=== PATIENT | female | born 1965 | race Caucasian/White ===

== ENCOUNTER 2025-08-17 23:06 | Inpatient (IN) | payer MEDICAID ==
[~2025-08-17] VITALS: Ht 160 cm; Wt 77.5 kg
--- NOTE | 2025-08-17 23:34 | Physician Documentation ---
History of Present Illness ~ Chief Complaint: See Chief Complaint Stated Complaint: FALL Time Seen by MD: 23:29 Source: patient Mode of Arrival: POV Exam Limitations: no limitations HPI 59-year-old female had a single syncopal episode today. 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 2/10 pain. Patient has history of heart murmur and type 2 diabetes she does take metformin glipizide and insulin. Patient's blood sugar this morning was unremarkable. Patient felt fine prior to her volunteer time. Patient was evaluated at [facility] with multiple CTs including CT angio head and neck, CT lumbar spine chest x-ray, CT cervical spine, CT brain. Due to the poor weather transport was not available patient's spouse falling tear to self transport here due to meeting further evaluation for TIA symptoms. With vertical in the past but [place] syncopal episode a tele neuro consult at [facility] recommended further evaluation for TIA stroke. Patient during re- examination of the hospital stay nightmares had 2 episodes of diplopia as well as a few episodes of vertigo the double vision lasted about 5 minutes and fully resolved in the vertigo only lasted a few minutes prior to resolution Medication Reconciliation Allergies: Coded Allergies: bupropion (Verified Allergy, Unknown, 08/17/25) ipratropium (Verified Allergy, Unknown, 08/17/25) Past Medical History Past Medical History: *CARDIOVASCULAR*, Heart Valve Disease, Diabetes Past Surgical History: noncontributory Lives with: Spouse Lives In: Home Occupation: disabled Review of Systems All Other Systems at this time: Reviewed and Negative Neurological: Reports: see HPI Physical Exam Vital Signs: RN Vital Signs have been reviewed: Yes, Temperature: 97.9, Heart Rate: 65, Respiratory Rate: 16, BP: 169/148, Pulse Oximetry: 100, Weight: 77.500 Oxygen Flow Rate: 0 Physical Exam General: Alert, no apparent distress. HEENT: PERRL, EOMI, no injection, moist mucous membranes. Normocephalic atraumatic Neck: Full range of motion. No cervical spine pain Respiratory: Lungs clear, no respiratory distress. Chest: No accessory muscle use. Cardiovascular: Regular rate and rhythm, 3/6 murmur Extremities: Normal range of motion, no deformity. Neurologic: Oriented x4. No facial asymmetry no speech difficulties no swallowing difficulties no obvious neuro deficits Psychiatric: Normal mood and affect. Skin: Normal color, warm and dry. No edema, no ecchymosis. Progress Results/Orders Results/Orders Orders - CHIOMA GOULD MANAGER BIOSTATISTICS Electrocardiogram (08/17/25 23:34) Accucheck (08/17/25 23:34) Monitor (08/17/25 23:34) Saline Lock (08/17/25 23:34) Page Hospitalist (08/18/25 00:03) Fill Out Med Reconciliation (08/18/25 00:03) Completed Orders - CHIOMA GOULD MANAGER BIOSTATISTICS Cbc/Diff (08/17/25 23:34) Urinalysis, Cult If Indicated (08/17/25 23:34) BMP (08/17/25 23:34) Hs Troponin I W Calculations (08/17/25 23:34) Vital Signs 08/17/25 08/17/25 08/17/25 23:14 23:14 23:39 Temp 97.9 Pulse 65 63 Resp 16 18 16 B/P (MAP) 169/148 123/95 (104) Pulse Ox 100 99 O2 Flow Rate 0 Laboratory Tests Test 08/17/25 23:11 08/17/25 23:27 08/17/25 23:30 Urine Specimen Description Cln catch midstream Urine Color Yellow Urine Clarity Clear Urine pH 6.0 Urine Specific [place] 1.010 Urine Protein Negative Urine Glucose (UA) 500 H Urine Ketones Negative Urine Occult Blood Negative Urine Nitrite Negative Urine Bilirubin Negative Urine Urobilinogen 0.2 Urine Leukocyte Esterase Negative Urine Culture Indicated Not ind Volume Urine Centrifuged 10 ml Urine Comment White Blood Count 9.3 Red Blood Count 5.04 Hemoglobin 15.6 Hematocrit 44.3 Mean Corpuscular Volume 88.0 Mean Corpuscular Hemoglobin 30.9 Mean Corpuscular Hemoglobin Concent 35.1 Red Cell Distribution Width 15.4 H Platelet Count 254 Mean Platelet Volume 8.6 Neutrophils (%) (Auto) 64.0 Lymphocytes (%) (Auto) 28.6 Monocytes (%) (Auto) 5.5 Eosinophils (%) (Auto) 1.3 Basophils (%) (Auto) 0.6 Neutrophils # (Auto) 5.9 Lymphocytes # (Auto) 2.7 Monocytes # (Auto) 0.5 Eosinophils # (Auto) 0.1 Basophils # (Auto) 0.1 CBC Comment Sodium Level 140 Potassium Level 3.8 Chloride Level 107 Carbon Dioxide Level 26.2 Anion Gap 7 L Blood Urea Nitrogen 19 H Creatinine 0.57 Estimated GFR/1.73 m2 > 90 BUN/Creatinine Ratio 33.3 H Glucose Level 94 Calcium Level 8.9 Troponin I High Sensitivity 7 Albumin 3.9 Chemistry Comments Glucometer 107 H Medical Decision Making Additional information obtaine: old records Findings Records briefly reviewed by [facility]. Admit for workup for TIA/stroke due to syncopal episode. Differential Dx:Considerations: Include: dehydration, dysrhythmia, electrolyte disorder, hypoglycemia, vasovagal, vertigo peripheral, other Departure Time of Disposition: 00:00 Disposition: 02 SHORT TERM HOSPITAL Impression: Primary Impression: Syncopal episodes Additional Impressions: Closed head injury Cervical sprain Lumbar strain Diplopia Condition: Fair Referrals: NO PRIMARY CARE PROVIDER (PCP) Education Educated: Patient, Family Educated regarding: diagnosis, treatment, need for follow up Signature Scribe Signature: No scribe Attestation: The note accurately reflects work and decisions made by me.Chioma MEYER 08/17/25 23:33 CHIOMA GOULD NP Aug 17, 2025 23:34
[2025-08-17 23:42] LABS: MEAN PLATELET VOLUME 8.6 FL (7.4-10.4); RED CELL DISTRIBUTION WIDTH 15.4 % (11.5-14.5)
[2025-08-17 23:52] LABS: CREATININE 0.57 MG/DL (0.40-0.90); TOTAL CARBON DIOXIDE 26.2 MMOL/L (24-32); eCRCL 89 ML/MIN; eGFR > 90 ML/MIN
[2025-08-17 23:56] LABS: LEUKOCYTE ESTERASE ,URINE NEGATIVE (Neg); NITRITES, URINE NEGATIVE (Neg); OCCULT BLOOD,URINE NEGATIVE (Neg)
[2025-08-17 23:58] LABS: UA COLLECTION TYPE CLN CATCH MIDSTREAM
[2025-08-18] VITALS (10 sets, daily range): BP systolic 80–143; BP diastolic 40–66; PULSE 56–79; RESP 12–19; TEMP 97.5–98.5; O2SAT 95–100
[2025-08-18] MEDS ORDERED: potassium Cl 40MEQ/1/2NS 520ml 520 ML IV PRN (00:30)
[2025-08-18] MEDS ORDERED: ondansetron/PF 4mg/2ml inj IV PRN (00:30)
[2025-08-18] MEDS ORDERED: magnesium sulf-water 2g/50mL 50 ML IV PRN (00:30)
[2025-08-18] MEDS ORDERED: potassium Cl 20 mEq SR tablet PO PRN ×2 (00:30)
[2025-08-18] MEDS ORDERED: HYDROcodone/acetaminophen 5mg/325mg tablet PO PRN (00:30)
[2025-08-18] MEDS ORDERED: magnesium sulf-water 4G/100mL 100 ML IV PRN (00:30)
[2025-08-18] MEDS ORDERED: mag hydrox/Alum hydrox/simeth 30ml oral suspension PO PRN (00:30)
[2025-08-18] MEDS ORDERED: magnesium hydroxide 30ml (MOM) UD suspension PO PRN (00:30)
[2025-08-18] MEDS ORDERED: magnesium Cl slow-release 64mg tablet PO PRN (00:30)
[2025-08-18] MEDS ORDERED: TIOT18CA3 INH (00:50)
[2025-08-18] MEDS ORDERED: GLIP10TA18 PO (00:50)
[2025-08-18] MEDS ORDERED: LISI10TA27 PO (00:50)
[2025-08-18] MEDS ORDERED: MECL-302 PO (00:50)
[2025-08-18] MEDS ORDERED: SIMV-42 PO (00:50)
[2025-08-18] MEDS ORDERED: METF-438 PO (00:50)
[2025-08-18] MEDS ORDERED: LANTUS SQ (00:50)
--- NOTE | 2025-08-18 02:13 | HISTORY AND PHYSICAL-Residence ---
History & Physical Providers to CC Resident Creating Document: ABRAN YBARRA, FAINA ~ History of Present Illness Reason for Admit\Complaint: Syncope History of Present Illness This is a 59-year-old female who presents from [facility] for the evaluation of syncope, patient reports that earlier today at approximately 1:00 p.m. while collecting donations at [employer], she suddenly lost consciousness and fell to the ground she states that episodes occurred without any preceding symptom, denies nausea vomiting, visual changes, chest pain before the event. She also hit her head on the ground and had headache when she regained the consciousness. She also developed double vision in the right eye 40 minutes after this episode which last for 5 minutes, Currently double vision has resolved. Patient also states pain over the tailbone since the episode, currently she has very minimal pain. In addition to that she also experiences these types of episodes in past which were associated with blurry vision but never experienced loss of consciousness. Brief Course at [facility] Received aspirin 325 mg, Plavix 300 mg Tele neuro was consulted at [facility] and there was concern for TIA and recommended further evaluation of stroke. CT head, CT angio head and neck, CT lumbar spine, CT cervical spine was done at [facility] Allergies: Coded Allergies: bupropion (Verified Allergy, Unknown, 08/17/25) ipratropium (Verified Allergy, Unknown, 08/17/25) Home Medications Home Medications Active Reported Lantus* (Insulin Glargine) 100 Unit/1 Ml Vial 10 Units SQ DAILY Metformin HCl 1,000 Mg Tablet 1 Tab PO BID Meclizine HCl 25 Mg Tablet 1 Tab PO BID PRN Glipizide 10 Mg Tablet 1 Tab PO BID Zocor* (Simvastatin) 20 Mg Tablet 1 Tab PO HS Spiriva (Tiotropium [place]) 18 Mcg Cap.w.dev 1 Cap INH DAILY Lisinopril 10 Mg Tablet 1 Tab PO DAILY Past Medical History Past Medical History Hypertension Diabetes mellitus type 2 COPD Vertigo Heart Murmur 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 Family History Family History: Diabetes mellitus (father and grand father type 2 diabetes mellitus) FH: melanoma (father and grand father) FH: throat cancer (mother) Past Social History Social History Comment She smokes cigarettes since age 16 years about half a pack a day Quit alcohol six months ago before that used to drink 5-6 glasses wine sometimes 10 beers. Denies other illicit drug use history. Lives in home, walk by herself She dont remember PCP name. ROS ROS Reviewed and negative except pertinent positive findings mentioned in HPI Neurological: Reports: see HPI Exam Vitals: Vital Signs Date Time Temp Pulse Resp B/P (MAP) Pulse Ox O2 Delivery O2 Flow Rate FiO2 08/18/25 01:37 68 16 114/47 (69) 99 08/17/25 23:14 97.9 0 General: General: awake, alert oriented to place, time, and person HEENT: No pallor present, no icterus, moist mucous membranes Neck: No masses and tenderness Resp: Unlabored. Lungs clear to auscultation bilaterally. Chest: Normal expansion. Cardiovascular: Regular Rate and rhythm, normal S1 and S2, rub or gallop, 3/6 systolic murmur on aortic area. Abdomen: Soft and mildly tender in epigastrium, no organomegaly, no guarding and rigidity, bowel sounds present Neuro: No focal weakness in the upper and lower limb muscles, power of the muscles 5/5 bilateral upper and lower extremities, normal reflexes bilaterally. Cranial nerves intact Extremities: No cyanosis,clubbing or edema Skin: Warm and Dry. No lesions Psych: Normal affect Diagnostic Data Last Recorded Lab Results: 08/17/[id number] Advance Care Planning Advanced Care plannin - 30 Minutes (I spent 30 minutes in discussing various resuscitative measures with the patient and she chose to be DNR) Additional Plan This is a 59-year-old female presented ER from [facility] for syncope. Syncope likely cardiac in etiology Could be vasovagal, Orthostatic or Neurogenic Patient has murmur on aortic area, patient passed out without any warning symptoms which suggests more toward syncope cardiac in origin. Patient also had papitations. EKG shows sinus bradycardia, NO STEMI. Orthostatics, neurocheck Q4h Follow up with the Echo and MRI head CT head at [facility] shows: No evidence of acute intracranial abnormality, low-lying cerebellar tonsils seen. CT angio head and neck at [facility] shows: Mild diffuse narrow claiber of right common and internal carotid arteries as compared to left side, eccentric calcific foci causing mild luminal compromise at origin of right internal carotid artery, mild narrowing of supraclinoid segment of both internal carotid arteries. Back Pain Patient reports pain over tailbone 2/10 since syncopal episode, CT lumbar spine at [facility] shows:No ct evidence of acute osseous abnormality of lumbar spine, severe degenerative disc disease L5-S1 with associated modic degenerative endplate change. Moderate- Severe spinal canal narrowing at L4-L5. Bulging of disc and hypertrophy ligamentum flavum, severe bilateral foraminal narrowing L5-S1. COPD not in acute exacerbation Allergic to ipratropium, Albuterol Q4h prn Incentive spirometry She does not use oxygen at home Type 2 diabetes mellitus Follow up with the A1c On moderate hyperglycemia/hypoglycemic protocol Hyperlipidemia Continue simvastatin 20 mg, once med rec is done Hypertension Continue lisinopril 20 mg p.o. daily, once med rec Code Status: DNR DVT Prophylaxis:SCD GI Prophylaxis: Pantoprazole 40 mg PO Nutrition: Carb controll diet Date of Service: Aug 18, 2025 Billing Provider: OCTAVIA VALENZUELA MD Addendum Attestation I agree with the residents assessment and plan as below: 59 year old female transferred for evaluation of syncope and possible stroke Plan: MRI brain telemonitoring official echo CCT 51 min using HIPPA compliant A/V technology ABRAN YBARRA, RES Aug 18, 2025 02:13 OCTAVIA VALENZUELA MD Aug 18, 2025 04:16
[2025-08-18] MEDS ORDERED: DEXTROSE 15 GM of carb/4 tabs (each vial/BOTTLE has 4 tablets) PO PRN ×2 (02:30)
[2025-08-18] MEDS ORDERED: glucagon, human recombinant 1mg kit SUBCUT PRN (02:30)
[2025-08-18] MEDS ORDERED: dextrose 50%-water 50ml dispensing syringe IV PRN ×2 (02:30)
[2025-08-18] MEDS ORDERED: ipratropium/albuterol 3ml nebule NEB PRN (02:30)
[2025-08-18] MEDS ORDERED: albuterol 2.5 MG/3 ML nebule NEB PRN (03:25)
[2025-08-18 06:49] LABS: CHOL/HDL RATIO 3.5 (0.00-4.99); LDL CHOLESTEROL 68 MG/DL (50-100)
[2025-08-18] MEDS: INSULIN LISPRO 100 UNIT/ML INSULN.PEN MULTI-DOSE SQ SCH (07:00)
[2025-08-18] MEDS: K and/or MAG REPLACEMENT MC SCH (08:00)
[2025-08-18] MEDS: docusate sod 100mg capsule PO SCH (08:41)
[2025-08-18 09:39] LABS: MEAN PLATELET VOLUME 8.8 FL (7.4-10.4); RED CELL DISTRIBUTION WIDTH 15.7 % (11.5-14.5)
[2025-08-18 09:46] LABS: CREATININE 0.52 MG/DL (0.40-0.90); TOTAL CARBON DIOXIDE 24.9 MMOL/L (24-32); eCRCL 98 ML/MIN; eGFR > 90 ML/MIN
--- NOTE | 2025-08-18 11:20 | ELECTROCARDIOGRAPH REPORT ---
[facility] Test Date: 2025-08-17 Test Time: 23:44:52 Pat Name: DULCE MARIA CARRILLO Department: EMERGENCY ROOM Room: ORTHO 4014 Gender: F Client Development Manager: : 1965 Requested By: ELMA GOULD Order Number: [id number] Reading MD: Dr. Marck Zee Measurements Intervals [place] Rate: 55 P: 16 NM: 203 QRS: -12 QRSD: 122 T: 66 QT: 422 QTc: 404 Interpretive Statements Age not entered, assumed to be 51 years old for purpose of ECG interpretation Sinus bradycardia Borderline prolonged NM interval Nonspecific intraventricular conduction delay Electronically Signed On 08-18-2025 18:30:[address] Marck Zee Please click the below link to view image of tracing.
[2025-08-18] MEDS: aspirin 81mg, enteric-coated 1 TAB TABLET.DR PO SCH (12:58)
[2025-08-18] MEDS: PERFLUTREN PROTEIN-A MICROSPHR (Optison) 0.22 MG/ML 3ML VIAL IV ONE (13:00)
[2025-08-18 14:19] LABS: URINE AMPHETAMINE SCREEN NEGATIVE (Neg); URINE BARBITUATE SCREEN NEGATIVE (Neg); URINE BENZODIAZEPINES SCREEN NEGATIVE (Neg); URINE CANNABINOID SCREEN POSITIVE (Neg); URINE COCAINE SCREEN NEGATIVE (Neg); URINE METHADONE SCREEN NEGATIVE (Neg); URINE OPIATE SCREEN NEGATIVE (Neg); URINE PHENCYCLIDINE SCREEN NEGATIVE (Neg)
--- NOTE | 2025-08-18 16:55 | RADIOLOGY REPORT ---
EXAM: MR MRI HEAD CLINICAL HISTORY: SYNCOPE WORKUP COMPARISON: None TECHNIQUE: Multiplanar, multisequence magnetic resonance imaging of the brain was performed without intravenous contrast. FINDINGS: Normal brain volume information. Scattered deep and subcortical white matter T2/FLAIR hyperintense foci which may represent chronic small-vessel ischemic changes. Mild prominence of the perivascular spaces. The blood sensitive sequence is limited by motion. Otherwise, no hemorrhages, masses, mass effect, midline shift, herniation or cytotoxic edema following large vascular territory. No intra-axial or extra-axial fluid collections. No evidence of hydrocephalus. The basal cisterns are patent. The vascular flow voids are maintained. The pituitary gland, sella and parasellar regions are unremarkable. 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 The cerebellum is unremarkable. The orbits and globes unremarkable. Minimal mucoperiosteal thickening of the ethmoid air cells. Otherwise, the paranasal sinuses and mastoids are clear. There are No worrisome calvarial lesions. On the provided [id number] axial MRI the Right vertebral artery is not wall evaluated. Otherwise, no hemodynamically significant stenosis within the limitations of non contrast [id number] MRA. IMPRESSION: No evidence of acute intracranial abnormalities. 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
--- NOTE | 2025-08-18 17:42 | CARDIOLOGY REPORT ---
APPROVED REPORT EXAM: Comprehensive 2D, Doppler, and color-flow Echocardiogram. Patient Location: [facility] Heart Rate: 59 bpm Rhythm: NSR Indications SYNCOPE HTN COPD DIABETES TYPE 2 MURMUR BACK TENDER INSULATION BOARD: None. PRIOR ECHOCARDIOGRAM: None. 2D Dimensions RVDd 3.4 cm IVSd 1.3 (0.7-1.1cm) LVDd 4.1 cm PWd 1.2 (0.7-1.1cm) IVSs 1.5 (0.8-1.2cm) LVDs 2.8 (2.5-4.0cm) PWs 1.9 (0.8-1.2cm) LVOT Diameter 1.96 (1.8-2.4cm) LVEF(%) 58.3 (>50%) FS (%) 30.4 % SV 42.4 ml CO 2.4 L/min M-Mode Dimensions Left Atrium(MM) 4.14 (2.5-4.0cm) Aortic Root 2.75 (2.2-3.7cm) Aortic Cusp Exc 1.28 (1.5-2.0cm) Aortic Valve AoV Peak Jacobo. 269.0 cm/s AoV VTI 69.6 cm AO Peak GR. 29.0 mmHg AO Mean GR. 17 mmHg LVOT VTI 21.07 cm LVOT Peak Jacobo. 100.7 cm/s KARLA (VTI) 1.51 cm2 AI P 1/2 Time 584 ms AV DI 0.30 % Mitral Valve MV E Velocity 99.4 cm/s MV Peak Gr. 4 mmHg MV A Velocity 93.6 cm/s MV PHT 64 ms E/A Ratio 1.1 MVA (PHT) 3.44 cm2 MV VMax 98.5 cm/s Tricuspid Valve TR P. Velocity 235 cm/s RAP ESTIMATE 5 mmHg TR Peak Gr. 22 mmHg RVSP 27 mmHg LEFT VENTRICLE Normal LV size and function. Mild concentric hypertrophy. LVEF is 55-60%. RIGHT VENTRICLE RV is normal size and function. ATRIA Left atrium is mildly dilated. AORTIC VALVE Trileaflet AV appears moderately sclerotic wit mild stenosis. Mild insufficiency. KARLA: 1.51 cmsq; Pkv: 2.69 m/sec; Gradients: 29/17 mmHG. Mild insufficiency. MITRAL VALVE Mild mitral annular calcification without stenosis. Mild regurgitation. TRICUSPID VALVE TV appears structurally normal with trace regurgitation. PULMONIC VALVE Pulmonic valve is not well visualized. GREAT VESSELS The aortic root is normal in size. The ascending aorta is normal in size. The IVC is normal in size and collapses >50% with inspiration. PERICARDIUM Normal pericardium. No effusion. Other Information Study Quality: Adequate Conclusion Normal LV size and function. Mild concentric hypertrophy. RV is normal size and function. Left atrium is mildly dilated. Trileaflet AV appears moderately sclerotic wit mild stenosis. Mild insufficiency. KARLA: 1.51 cmsq; Pkv: 2.69 m/sec; Gradients: 29/17 mmHG. Mild insufficiency. Mild mitral annular calcification without stenosis. Mild regurgitation. TV appears structurally normal with trace regurgitation. Normal pericardium. No effusion.
[2025-08-18] MEDS: insulin glargine (Lantus) pen - multi-dose SQ SCH (20:43)
[2025-08-19 02:00] VITALS: BP 133/56; PULSE 56; RESP 12; TEMP 97.6; O2SAT 99
[2025-08-19 06:00] VITALS: BP 131/56; PULSE 60; RESP 14; TEMP 96.5; O2SAT 97
[2025-08-19 06:03] LABS: MEAN PLATELET VOLUME 8.6 FL (7.4-10.4); RED CELL DISTRIBUTION WIDTH 15.5 % (11.5-14.5)
[2025-08-19 06:17] LABS: APTT 29 SECONDS (22-32); INR 1.0 INR
[2025-08-19 06:26] LABS: CREATININE 0.51 MG/DL (0.40-0.90); PHOSPHORUS 4.4 MG/DL (2.3-4.5); TOTAL CARBON DIOXIDE 26.6 MMOL/L (24-32); eCRCL 99 ML/MIN; eGFR > 90 ML/MIN
[2025-08-19 07:30] VITALS: BP_SYST 135; BP_SYST 91; BP_SYST 95; BP_DIAS 45; BP_DIAS 46; BP_DIAS 59; PULSE 50; PULSE 58; PULSE 59
[2025-08-19 09:05] LABS: PRO BRAIN NATRIURETIC PEPTIDE 68 PG/ML (0-125)
[2025-08-19] MEDS ORDERED: ASPI-1071 PO (09:58)
[2025-08-19 10:00] VITALS: BP 130/46; PULSE 69; RESP 10; TEMP 97.9; O2SAT 99
[2025-08-19 11:17] VITALS: PULSE 62; RESP 18; O2SAT 97
--- NOTE | 2025-08-19 17:11 | DISCHARGE SUMMARY-Residence ---
Discharge Summary Providers to Resident Creating Document: LOGAN MAGANA RES ~ Discharge Summary Admission Diagnosis: STROKE WORKUP Hospital Course DATE OF ADMISSION: 08/18/2025 DATE OF DISCHARGE: 08/19/2025 Labs at the time of discharge WBCs 7.2 Hemoglobin 14.8 Sodium 143 Potassium 4.0 Creatinine 0.5 A1c 6.2 Phosphorus 4.4 ProBNP 68 Total cholesterol 127 LDL 68 HDL 36 Triglycerides 208 Echocardiogram on 08/18/2025 Normal LV size and function. EF 55-60% Mild concentric hypertrophy. RV is alma l size and function. Left atrium is mildly dilated. Trileaflet AV appears moderately sclerotic wit mild stenosis. Mild insuffic iency. KARLA: 1.51 cmsq; Pkv: 2.69 m/sec; Gradients: 29/17 mmHG. Mild insufficiency. Mild mitral annular calcification without stenosis. Mild regurgitation. TV appears structurally normal with trace regurgitation. Normal pericardium. No effusion. Imaging done at [facility] CT head at [facility] shows: No evidence of acute intracranial ab normality, low-lying cerebellar tonsils seen. CT angio head and neck at [facility] shows: Mild diffuse narrow claiber of right common and internal carotid arteries as compared to left side, eccentric calcific foci causing mild luminal compromise at origin of right internal carotid artery, mild narrowing of supraclinoid segment of both internal carotid arteries. CT lumbar spine at [facility] shows:No ct evidence of acute osseous abnormality of lumbar spine, severe degenerative disc disease L5-S1 with associated modic degenerative endplate change. Moderate- Severe spinal canal narrowing at L4-L5. Bulging of disc and hypertrophy ligamentum flavum, severe bilateral foraminal narrowing L5-S1. MRI head done at [place] No evidence of acute intracranial abnormalities. 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 Discharge Diagnosis\Comment: Syncope likely secondary to TIA COPD, not in acute exacerbation Type 2 diabetes mellitus Hyperlipidemia Hypertension Operations\Procedures: None Consultants: None Complications: None Condition on DC: Stable New Medications: Aspirin (Ecotrin*) 81 Mg Tablet.dr 1 TAB PO DAILY for 30 Days, #30 TAB.SR Continued Medications: Glipizide (Glipizide) 10 Mg Tablet 1 TAB PO BID Insulin Glargine,Hum.rec.anlog* (Lantus*) 100 Unit/1 Ml Vial 10 UNITS SQ DAILY Lisinopril (Lisinopril) 10 Mg Tablet 1 TAB PO DAILY Meclizine HCl (Meclizine HCl) 25 Mg Tablet 1 TAB PO BID PRN for nausea Metformin HCl (Metformin HCl) 1,000 Mg Tablet 1 TAB PO BID Simvastatin* (Zocor*) 20 Mg Tablet 1 TAB PO HS Tiotropium [place] (Spiriva) 18 Mcg Cap.w.dev 1 CAP INH DAILY Discharge Summary: This is a 59-year-old female with a history of hypertension, hyperlipidemia, diabetes mellitus, aortic stenosis was transferred from [facility] for further evaluation of syncope. On the day of admission patient was collecting donation said [employer] when she suddenly lost consciousness for less than a minute and fell to the ground hitting her head. A few hours after the syncopal episode she developed double vision in the right eye which lasted for about 5 minutes and then resolved. She denied any chest pain, palpitations, lightheadedness, dizziness, nausea, vomiting, diarrhea, fever, burning sensation in the urine. Courseat [facility]. CT head showed no evidence of acute intracranial abnormality, low-lying cerebellar tonsils. CTA head and neck showed mild diffuse narrow caliber of right common and internal carotid arteries compared to the left side, eccentric calcific foci causing mild luminal compromise at origin of right internal carotid artery, mild narrowing of supraclinoid segment of both internal carotid arteries. CT lumbar spine showed no evidence of acute osseous abnormality, severe degenerative disc disease L5-S1 with degenerative endplate change. Ordered to severe spinal canal narrowing at L4-L5, bulging of disc and hypertrophy of ligamentum flavum, severe bilateral foraminal narrowing L5-S1 Tele neuro consult was done, recommended possible TIA, was started on aspirin and Plavix. Hospital course. Further syncope evaluation was done. Orthostatic vitals were initially negative, later positive with physical therapy but patient was asymptomatic. Echo did show mild aortic stenosis, patient is asymptomatic on exertion. Patient had few episodes of bradycardia with a heart rate ranging in 50s. Recommended outpatient cardiology follow up for loop recorder and follow up of aortic stenosis. As patient had an episode of double vision after the syncope, TIA can not be ruled out. We will discharge the patient on aspirin and continue home medications simvastatin. As CT head showed descending cerebellar tonsils, MRI head was done which showed mm ectopia cerebellar tonsil beds below the plane of foramen magnum. But patient denied any episodes of occipital headache, dizziness, ringing sensation in the ER, tingling numbness, weakness in the upper extremities. Considering the CT lumbar spine finding and MRI head findings, recommended the patient to follow up outpatient with the neurosurgeon. For history type 2 DM, HLD, hypertension continued patient's home medications lisinopril, simvastatin. Patient record earlier than expected and is stable enough to be discharged home At the time of discharge patient had the following physical examination findings General: awake, alert oriented to place, time, and person HEENT: No pallor present, no icterus, moist mucous membranes Neck: No masses and tenderness Resp: Unlabored. Lungs clear to auscultation bilaterally. Chest: Normal expansion. Cardiovascular: Regular Rate and rhythm, normal S1 and S2, rub or gallop, 3/6 systolic murmur on aortic area. Abdomen: Soft, no tenderness no organomegaly, no guarding and rigidity, bowel sounds present Neuro: No focal weakness in the upper and lower limb muscles, power of the muscles 5/5 bilateral upper and lower extremities, normal reflexes bilaterally. Cranial nerves intact Extremities: No cyanosis,clubbing or edema Skin: Warm and Dry. No lesions Psych: Normal affect Discharge medications Aspirin 81 mg Continued home medication Lisinopril 10 mg Glipizide 10 mg Lantus 10 units Simvastatin 20 mg Discharge instructions Follow up with PCP in 2 weeks. Please get a referral to mental health advanced practice nurse for outpatient cardiac monitoring. Follow out patient with nuerosurgeon. Continue to take aspirin and simvastin daily. Monitor your Blood pressure daily at home. Call 911 or return to ER in case of loass of conciousness, chest pain, blurred vison, suddent onset weakness. *Problems/Diagnosis: (1) Syncopal episodes Status: Acute (2) Diplopia Status: Acute Total Time Spent on D/C: > 30 Minutes Date of Service: Aug 19, 2025 Billing Provider: KARISSA BECERRA MD Common Visit Codes: 78963-XIT/OBS DISCH DAY >30min LOGAN MAGANA, FAINA Aug 19, 2025 16:40 KARISSA BECERRA MD Aug 20, 2025 08:03
== END 2025-08-19 11:45 | disposition home or self-care (01) | DRG 47 ==
LOC: ER 23:07 → ED HOLD 08-18 00:33 → PCU 3S 08-18 02:58 → ORTHO 4S 08-18 14:06
PROVIDERS: ADMIT Internal Medicine; ATTEND Internal Medicine
DX: G45.9 Transient cerebral ischemic attack, unspecified (principal); S09.8XXA Other specified injuries of head, initial encounter; E11.9 Type 2 diabetes mellitus without complications; I10 Essential (primary) hypertension; J44.9 Chronic obstructive pulmonary disease, unspecified; I35.0 Nonrheumatic aortic (valve) stenosis; H53.2 Diplopia; Z66 Do not resuscitate; S13.4XXA Sprain of ligaments of cervical spine, initial encounter; S39.012A Strain of muscle, fascia and tendon of lower back, initial encounter; M54.9 Dorsalgia, unspecified; E78.5 Hyperlipidemia, unspecified; W18.39XA Other fall on same level, initial encounter; Y93.89 Activity, other specified; Y92.89 Other specified places as the place of occurrence of the external cause; Y99.8 Other external cause status
CPT/HCPCS: 36415; 70551; 80048; 80053; 80061; 80305; 81003; 82948; 83036; 83735; 83880; 84100; 84484; 85025; 85610; 85730; 87081; 93005; 93306; 94760; 97110; 97116; 97162; 99285; A7015; G0378; J1815